=== PATIENT | male | born 1955 | race Caucasian/White ===

== ENCOUNTER 2019-05-12 18:23 | Emergency (ER) | payer SELFPAY ==
[~2019-05-12] VITALS: Ht 170.2 cm; Wt 72.7 kg
[2019-05-12] MEDS ORDERED: PredniSONE 20 MG TABLET PO ONE (19:00)
[2019-05-12] MEDS ORDERED: CETIRIZINE HCL 10 MG TABLET PO ONE (19:00)
[2019-05-12] MEDS ORDERED: FAMOTIDINE 20 MG TABLET PO ONE (19:00)
[2019-05-12 19:25] VITALS: BP 146/89
== END 2019-05-12 19:25 | disposition home or self-care (01) ==
LOC: EMS 18:24
DX: L25.9 Unspecified contact dermatitis, unspecified cause (principal)
CPT/HCPCS: 99284; J7512

== ENCOUNTER 2019-05-28 13:19 | Emergency (ER) | payer SELFPAY ==
[~2019-05-28] VITALS: Ht 180.3 cm; Wt 81.8 kg
[2019-05-28 13:40] VITALS: BP 152/97
== END 2019-05-28 16:00 | disposition left against medical advice (07) ==
LOC: EMS 13:21
DX: R21 Rash and other nonspecific skin eruption (principal); Z53.21 Procedure and treatment not carried out due to patient leaving prior to being seen by health care provider

== ENCOUNTER 2021-04-09 20:02 | Emergency (ER) | payer MEDICAID ==
[~2021-04-09] VITALS: Ht 180.3 cm; Wt 77.2 kg
[2021-04-09] MEDS ORDERED: AMOX TR/POT CLAV 875 MG/125 MG TABLET PO ONE (20:30)
[2021-04-09] MEDS ORDERED: IBUPROFEN 600 MG TABLET PO ONE (20:30)
[2021-04-09] MEDS ORDERED: ACETAMINOPHEN 500 MG TABLET PO ONE (20:30)
[2021-04-09 21:32] VITALS: BP 155/92
== END 2021-04-09 21:30 | disposition home or self-care (01) ==
LOC: EMS 20:06
DX: K08.89 Other specified disorders of teeth and supporting structures (principal)
CPT/HCPCS: 99284; Z7502; Z7610

== ENCOUNTER 2022-08-15 11:32 | Emergency (ER) | payer MEDICAID ==
[~2022-08-15] VITALS: Ht 172.7 cm; Wt 81.8 kg
[2022-08-15 11:34] VITALS: BP 144/84
[2022-08-15] MEDS ORDERED: CEPHALEXIN MONOHYDRATE 500 MG CAPSULE PO ONE (12:15)
[2022-08-15] MEDS ORDERED: DOXYCYCLINE HYCLATE 100 MG TABLET PO ONE (12:15)
[2022-08-15] MEDS ORDERED: LIDOCAINE 1% 10 ML VIAL SQ ONE (12:15)
[2022-08-15] MEDS ORDERED: CEPH-558 PO (12:37)
[2022-08-15] MEDS ORDERED: IBUP-1554 PO (12:37)
[2022-08-15] MEDS ORDERED: DOXY-354 PO (12:37)
== END 2022-08-15 12:56 | disposition home or self-care (01) ==
LOC: EMS 11:34
DX: L73.2 Hidradenitis suppurativa (principal)
CPT/HCPCS: 99283; 10060; J3490

== ENCOUNTER 2022-10-02 15:31 | Emergency (ER) | payer MEDICAID ==
[~2022-10-02] VITALS: Ht 177.8 cm; Wt 86.0 kg
[~2022-10-02 15:31] MED LIST: CEPH-558 PO; DOXY-354 PO; IBUP-1554 PO
[2022-10-02 15:45] VITALS: BP 155/96
== END 2022-10-02 17:35 | disposition left against medical advice (07) ==
LOC: EMS 15:35
DX: Z53.21 Procedure and treatment not carried out due to patient leaving prior to being seen by health care provider (principal)

== ENCOUNTER 2022-10-21 12:24 | Emergency (ER) | payer MEDICAID ==
[~2022-10-21] VITALS: Ht 177.8 cm; Wt 77.3 kg
[2022-10-21 12:32] VITALS: BP 113/88
== END 2022-10-21 15:48 | disposition left against medical advice (07) ==
LOC: EMS 12:30
DX: H57.89 Other specified disorders of eye and adnexa (principal); Z53.21 Procedure and treatment not carried out due to patient leaving prior to being seen by health care provider
CPT/HCPCS: 99281; Z7502

== ENCOUNTER 2023-09-26 13:38 | Emergency (ER) | payer MEDICARE, OTHER ==
[~2023-09-26] VITALS: Ht 180.3 cm; Wt 81.8 kg
[2023-09-26 13:40] VITALS: TEMP 98.9
[2023-09-26] MEDS: LIDOCAINE 1% 10 ML VIAL SQ ONE (14:35)
[2023-09-26] MEDS: PERTUSS(ACELL),DIPH,TET VAC/PF 0.5 ML SYRINGE IM. ONE (14:36)
[2023-09-26] MEDS: BACITRACIN 28 GM OINTMENT TP ONE (15:42)
[2023-09-26 17:18] VITALS: BP 134/82; PULSE 81; RESP 18
[2023-09-26] MEDS ORDERED: CEPH-558 PO (18:52)
== END 2023-09-26 19:02 | disposition left against medical advice (07) ==
LOC: EMS 13:52
DX: S02.85XA Fracture of orbit, unspecified, initial encounter for closed fracture (principal); F17.210 Nicotine dependence, cigarettes, uncomplicated; W22.8XXA Striking against or struck by other objects, initial encounter; Y93.89 Activity, other specified; Y92.89 Other specified places as the place of occurrence of the external cause; Y99.8 Other external cause status
CPT/HCPCS: 99285; 70450; 70486; 90715; 90471; 12013; J3490

== ENCOUNTER 2023-12-05 06:28 | Emergency (ER) | payer MEDICARE, OTHER ==
[~2023-12-05] VITALS: Ht 177.8 cm; Wt 81.8 kg
[~2023-12-05 06:28] MED LIST changes: -DOXY-354 PO; -IBUP-1554 PO
[2023-12-05 06:29] VITALS: TEMP 97.6
[2023-12-05 07:21] VITALS: BP 130/84; PULSE 72; RESP 14
[2023-12-05] MEDS ORDERED: PENI500T2 PO (07:28)
[2023-12-05] MEDS ORDERED: IBUP-1492 PO (07:28)
[2023-12-05] MEDS: KETOROLAC TROMETHAMINE 60 MG/2 ML VIAL IM ONE (07:29)
[2023-12-05] MEDS: PENICILLIN V POTASSIUM 500 MG TABLET PO ONE (07:30)
== END 2023-12-05 07:56 | disposition home or self-care (01) ==
LOC: EMS 06:28
DX: K02.9 Dental caries, unspecified (principal); I10 Essential (primary) hypertension; F17.210 Nicotine dependence, cigarettes, uncomplicated
CPT/HCPCS: 99283; 96372; J1885